=== PATIENT | male | born 1965 | race Caucasian/White ===

== ENCOUNTER 2020-04-10 16:35 | Inpatient (IN) | payer OTHER ==
[~2020-04-10] VITALS: Ht 170.2 cm; Wt 109.1 kg
--- NOTE | 2020-04-10 16:40 | NUR ---
Protocol not ordered as imaging and labs sent with pt from [facility]. To be reviewed by MICHAELA Restrepo and he will order any additional studies needed.
[2020-04-10] MEDS ORDERED: iohexol 350MG/ML 100ml bottle IV ONE ×2 (17:44→17:56)
[2020-04-10] MEDS ORDERED: acetaminophen 650mg rectal suppository RC PRN (19:55)
[2020-04-10] MEDS ORDERED: LORazepam 0.5 MG tablet PO PRN (19:55)
[2020-04-10] MEDS ORDERED: magnesium Cl slow-release 64mg tablet PO PRN (19:55)
[2020-04-10] MEDS ORDERED: metoclopramide 5 mg/ml inj IV PRN (19:55)
[2020-04-10] MEDS ORDERED: magnesium 4gm in 100ml NS 100 ML IV PRN (19:55)
[2020-04-10] MEDS ORDERED: ondansetron/PF 4mg/2ml inj IV PRN (19:55)
[2020-04-10] MEDS ORDERED: HYDROcodone/acetaminophen 10/325mg tab PO PRN (19:55)
[2020-04-10] MEDS ORDERED: acetaminophen 325mg tablet PO PRN ×2 (19:55)
[2020-04-10] MEDS ORDERED: mag hydrox/Alum hydrox/simeth 30ml oral suspension PO PRN (19:55)
[2020-04-10] MEDS ORDERED: HYDROcodone/acetaminophen 5mg/325mg tablet PO PRN (19:55)
[2020-04-10] MEDS ORDERED: magnesium hydroxide 30ml (MOM) UD suspension PO PRN (19:55)
[2020-04-10] MEDS ORDERED: potassium CL 10mEq/100ml bag 100 ML IV PRN ×2 (19:55)
[2020-04-10] MEDS ORDERED: magnesium 2GM in 50ml NS 50 ML IV PRN (19:55)
[2020-04-10] MEDS ORDERED: bisacodyl 10mg suppository rectal RC PRN (19:55)
[2020-04-10] MEDS ORDERED: potassium Cl 20 mEq SR tablet PO PRN ×2 (19:55)
[2020-04-10] MEDS: K and/or MAG REPLACEMENT MC SCH (20:00)
[2020-04-10] MEDS ORDERED: temazepam 15mg capsule PO PRN (21:00)
--- NOTE | 2020-04-10 23:20 | NUR ---
pt arrived from er. ambulated to bed from wheelchair without difficulties. pt has been oriented to the room. received report from connor Zuniga prior to pt's arrival.
[2020-04-11] VITALS (7 sets, daily range): BP systolic 130–172; BP diastolic 70–120
[2020-04-11 06:23] LABS: BASOPHILS % (AUTO) 0.5 % (0-1); EOSINOPHILS # (AUTO) 0.2 X10'3 (0-0.9); HEMATOCRIT 46.7 % (42.0-52.0); HEMOGLOBIN 15.7 g/dl (14.0-17.9); LYMPHOCYTES # (AUTO) 2.5 X10'3 (1.1-4.8); LYMPHOCYTES % (AUTO) 28.5 % (21-51); MEAN CORPUSCULAR HEMOGLOBIN 31.7 PG (27.0-31.0); MEAN CORPUSCULAR HGB CONC 33.7 g/dL (33.0-36.5); MEAN CORPUSCULAR VOLUME 94.1 FL (78-98); MEAN PLATELET VOLUME 7.3 FL (7.4-10.4); MONOCYTES # (AUTO) 1.3 X10'3 (0-0.9); MONOCYTES % (AUTO) 14.8 % (2-12); NEUTROPHILS # (AUTO) 4.7 X10'3 (1.8-7.7); NEUTROPHILS % (AUTO) 54.2 % (42-75); PLATELET COUNT 231 X10'3 (140-440); RED BLOOD COUNT 4.96 X10'6 (4.70-6.10); RED CELL DISTRIBUTION WIDTH 13.7 % (11.5-14.5); WHITE BLOOD COUNT 8.6 X10'3 (4.5-11.0)
--- NOTE | 2020-04-11 06:26 | NUR ---
Problems reprioritized. Patient report given, questions answered & plan of care reviewed with PRESTON DOE.
--- NOTE | 2020-04-11 06:30 | NUR ---
Patient in room ORTHO 4013. I have received report from Renea JOHNSTON and had the opportunity to ask questions and assume patient care.
[2020-04-11 06:31] LABS: HEMOGLOBIN A1C 6.1 % (4.5-6.2)
[2020-04-11 06:33] LABS: PARTIAL THROMBOPLASTIN TIME 29 SECONDS (22-32)
[2020-04-11 06:44] LABS: ALANINE AMINOTRANSFERASE 47 U/L (12-78); ALBUMIN 3.1 G/DL (3.4-5.0); ALBUMIN/GLOBULIN RATIO 0.9 (1.1-1.5); ALKALINE PHOSPHATASE 76 IU/L (46-116); ANION GAP 5 (8-16); ASPARTATE AMINO TRANSFERASE 24 U/L (10-37); BILIRUBIN,TOTAL 0.8 MG/DL (0.1-1.0); BLOOD UREA NITROGEN 24 MG/DL (7-18); BUN/CREATININE RATIO 17.1 (5.4-32.0); CALCIUM 8.2 MG/DL (8.5-10.1); CHLORIDE 108 MMOL/L (99-107); CHOL/HDL RATIO 4.2 (0.00-4.99); CHOLESTEROL 201 MG/DL (0-200); GLUCOSE 99 MG/DL (70-104); HDL CHOLESTEROL 48 MG/DL (35-60); LDL CHOLESTEROL 136 MG/DL (50-100); PHOSPHORUS 3.7 MG/DL (2.3-4.5); POTASSIUM 4.6 MMOL/L (3.5-5.1); SODIUM 141 MMOL/L (135-145); TOTAL CARBON DIOXIDE 27.6 MMOL/L (24-32); TOTAL PROTEIN 6.6 G/DL (6.4-8.2); TRIGLYCERIDES 141 MG/DL (20-135); eGFR 53 ML/MIN
[2020-04-11] MEDS ORDERED: NO HOME MEDS (07:17)
[2020-04-11] MEDS: K and/or MAG REPLACEMENT MC SCH ×2 (08:00→20:00)
[2020-04-11] MEDS: atorvastatin 20mg tablet PO SCH (08:10)
[2020-04-11] MEDS: aspirin 81mg tablet.DR PO SCH (08:10)
[2020-04-11] MEDS ORDERED: clopidogrel 300mg tablet PO ONE (10:25)
--- NOTE | 2020-04-11 18:28 | NUR ---
Patient in room ORTHO 4013. I have received report from Ingrid JOHNSTON and had the opportunity to ask questions and assume patient care.
[2020-04-12 02:00] VITALS: BP 146/97
[2020-04-12 06:00] VITALS: BP 140/81
[2020-04-12 06:15] LABS: BASOPHILS % (AUTO) 0.1 % (0-1); EOSINOPHILS % (AUTO) 0.2 % (0-6); HEMATOCRIT 47.9 % (42.0-52.0); HEMOGLOBIN 16.2 g/dl (14.0-17.9); LYMPHOCYTES # (AUTO) 0.6 X10'3 (1.1-4.8); LYMPHOCYTES % (AUTO) 5.4 % (21-51); MEAN CORPUSCULAR HEMOGLOBIN 31.3 PG (27.0-31.0); MEAN CORPUSCULAR HGB CONC 33.9 g/dL (33.0-36.5); MEAN CORPUSCULAR VOLUME 92.4 FL (78-98); MEAN PLATELET VOLUME 7.5 FL (7.4-10.4); MONOCYTES # (AUTO) 1.3 X10'3 (0-0.9); MONOCYTES % (AUTO) 11.4 % (2-12); NEUTROPHILS # (AUTO) 9.5 X10'3 (1.8-7.7); NEUTROPHILS % (AUTO) 82.9 % (42-75); PLATELET COUNT 207 X10'3 (140-440); RED BLOOD COUNT 5.19 X10'6 (4.70-6.10); RED CELL DISTRIBUTION WIDTH 13.3 % (11.5-14.5); WHITE BLOOD COUNT 11.4 X10'3 (4.5-11.0)
[2020-04-12 06:24] LABS: PARTIAL THROMBOPLASTIN TIME 30 SECONDS (22-32)
--- NOTE | 2020-04-12 06:35 | NUR ---
Problems reprioritized. Patient report given, questions answered & plan of care reviewed with Orlando JOHNSTON.
--- NOTE | 2020-04-12 06:37 | NUR ---
Patient in room ORTHO 4013. I have received report from [facility] and had the opportunity to ask questions and assume patient care.
[2020-04-12 06:39] LABS: ALANINE AMINOTRANSFERASE 47 U/L (12-78); ALBUMIN 3.6 G/DL (3.4-5.0); ALBUMIN/GLOBULIN RATIO 0.9 (1.1-1.5); ALKALINE PHOSPHATASE 83 IU/L (46-116); ANION GAP 10 (8-16); ASPARTATE AMINO TRANSFERASE 28 U/L (10-37); BLOOD UREA NITROGEN 23 MG/DL (7-18); BUN/CREATININE RATIO 14.3 (5.4-32.0); CALCIUM 8.6 MG/DL (8.5-10.1); CHLORIDE 98 MMOL/L (99-107); CREATININE 1.61 MG/DL (0.60-1.10); GLUCOSE 113 MG/DL (70-104); MAGNESIUM 1.6 MG/DL (1.5-2.4); PHOSPHORUS 2.3 MG/DL (2.3-4.5); POTASSIUM 4.5 MMOL/L (3.5-5.1); SODIUM 132 MMOL/L (135-145); TOTAL CARBON DIOXIDE 24.4 MMOL/L (24-32); TOTAL PROTEIN 7.5 G/DL (6.4-8.2); eGFR 45 ML/MIN
[2020-04-12] MEDS: K and/or MAG REPLACEMENT MC SCH (06:47)
[2020-04-12] MEDS: aspirin 81mg tablet.DR PO SCH (07:22)
[2020-04-12] MEDS: atorvastatin 20mg tablet PO SCH (07:22)
[2020-04-12 10:00] VITALS: BP 138/106
[2020-04-12] MEDS ORDERED: ATOR20TA66 PO (11:50)
[2020-04-12] MEDS ORDERED: ASPI-1071 PO (11:50)
[2020-04-12] MEDS ORDERED: CLOP75TA15 PO (11:50)
[2020-04-12] MEDS ORDERED: LISI-604 PO (11:51)
--- NOTE | 2020-04-12 15:20 | NUR ---
Safe DC. All personal items with patient. Left hospital with friend in personal vehicle.
== END 2020-04-12 15:23 | disposition home or self-care (01) | DRG 66 ==
LOC: ER 16:36 → ED HOLD 19:53 → ORTHO 4S 23:11 → OBSVTOIN 04-11 15:50
PROVIDERS: ADMIT Family Medicine; ATTEND Internal Medicine
PROC: B0201ZZ Computerized Tomography (CT Scan) of Brain using Low Osmolar Contrast (ICD-10-PCS; principal; 2020-04-10)
DX: I63.9 Cerebral infarction, unspecified (principal); E78.5 Hyperlipidemia, unspecified; F15.90 Other stimulant use, unspecified, uncomplicated; F17.200 Nicotine dependence, unspecified, uncomplicated; I12.9 Hypertensive chronic kidney disease with stage 1 through stage 4 chronic kidney disease, or unspecified chronic kidney disease; I25.10 Atherosclerotic heart disease of native coronary artery without angina pectoris; N18.9 Chronic kidney disease, unspecified; I65.22 Occlusion and stenosis of left carotid artery; Z86.73 Personal history of transient ischemic attack (TIA), and cerebral infarction without residual deficits; Z91.14 Patient's other noncompliance with medication regimen; Z91.19 Patient's noncompliance with other medical treatment and regimen; Z79.82 Long term (current) use of aspirin
CPT/HCPCS: 36415; 70496; 70498; 70551; 80053; 80061; 83036; 83735; 84100; 84443; 85025; 85610; 85730; 87081; 92508; 92616; 93005; 93306; 97161; 97530; 99285; G0378; Q9967